=== PATIENT | female | born 1995 | race Hispanic/Latino ===

== ENCOUNTER 2017-12-13 12:14 | Emergency (ER) | payer SELFPAY ==
[2017-12-13] MEDS ORDERED: Bupivacaine 0.5% 10 ML VIAL ONE (14:16)
== END 2017-12-13 15:41 | disposition home or self-care (01) ==
LOC: ERS 12:14
DX: L60.0 Ingrowing nail (principal); B35.1 Tinea unguium
CPT/HCPCS: 11750; J3490

== ENCOUNTER 2020-09-08 23:30 | Emergency (ER) | payer SELFPAY ==
--- NOTE | 2020-09-08 23:54 | RAD ---
Chest AP view INDICATION: History of positive Covid testing with shortness of breath COMPARISON: None FINDINGS: Lungs: There are patchy groundglass airspace opacities within the left midlung and left lower lobe s uspicious for pneumonia. The right lung is clear. Cardiac silhouette: The cardiomediastinal silhouette appears within normal limits. Pulmonary vasculature: Normal Pleural spaces: No pleural effusion or pneumothorax is demonstrated. Upper abdomen: No abnormality seen. Osseous structures: No acute osseous abnormality. Additional findings: None. IMPRESSION: Left-sided pneumonia
== END 2020-09-09 | disposition home or self-care (01) ==
LOC: ERS 23:30
DX: U07.1 COVID-19 (principal)
CPT/HCPCS: 71045